=== PATIENT | male | born 1990 | race Caucasian/White ===

== ENCOUNTER 2021-03-11 23:25 | Emergency (ER) | payer OTHER ==
[~2021-03-11] VITALS: Ht 185.4 cm; Wt 113.6 kg
--- NOTE | 2021-03-12 00:07 | RAD ---
Right shoulder 3 views. HISTORY: Injury, pain 3 views the right shoulder show an anterior dislocation of the shoulder. A definite fracture is not i dentified. IMPRESSION: 1. Anterior dislocation right shoulder. Electronically signed by: Patrick Benedict MD (03/12/2021 12:04 AM) [facility]
[2021-03-12] MEDS ORDERED: HYDR-2155 PO (00:45)
[2021-03-12] MEDS ORDERED: HYDROcodone/APAP 5/325MG 1 TAB TABLET PO ONE (00:45)
[2021-03-12] MEDS ORDERED: KETOROLAC 60 MG/2 ML VIAL. IM ONE (00:45)
--- NOTE | 2021-03-12 00:45 | PHYS DOC ---
Adult General Chief Complaint Chief Complaint: SHOULDER INJURY HPI HPI Patient is a 30-year-old male, otherwise healthy who presents to the emergency department with a chief complaint of right shoulder pain. States he was playing football just before coming in and fell to the ground on his right shoulder. States he has pain in that arm, 8 out of 10, sharp in nature and has had trouble moving it. Denies any other traumas, head injury, syncope, neck pain, chest pain, abdominal pain, shortness of breath, nausea, vomiting. Review of Systems Review of Systems Review of systems otherwise unremarkable except noted in HPI Current Medications Current Medications Current Medications Medications (Trade) Dose Ordered Sig/Hal Start Time Stop Time Status Last Admin Dose Admin Fentanyl Citrate (Fentanyl 2ml Vial) 100 mcg 1X ONCE 03/12/21 00:15 03/12/21 00:16 DC 03/12/21 00:14 100 MCG Allergies Allergies Allergies Coded Allergies Type Severity Reaction Last Updated Verified cefaclor Allergy Unknown 03/11/21 Yes Physical Exam Physical Exam Constitutional: Well developed, well nourished, no acute distress, non-toxic appearance. [] HENT: Normocephalic, atraumatic, Eyes:conjunctiva normal, no discharge. [] Neck: Normal range of motion, no tenderness, Cardiovascular:Heart rate regular rhythm, no murmur [] Lungs & Thorax: Bilateral breath sounds clear to auscultation [] Back: No tenderness, Extremities: Right shoulder pain on palpation or passive range of motion with apparent deformity. Neurovascular exam intact. Post reduction, patient able to move arm and complete range of motion with minimal pain. Neurologic: Alert and oriented X 3, no focal deficits noted. [] Psychologic: Affect normal, judgement normal, mood normal. [] Current Patient Data Vital Signs Vital Signs Date Time Temp Pulse Resp B/P (MAP) Pulse Ox O2 Delivery O2 Flow Rate FiO2 03/12/21 00:14 20 98 Room Air EKG EKG [] Radiology/Procedures Radiology/Procedures []ight shoulder 3 views. HISTORY: Injury, pain 3 views the right shoulder show an anterior dislocation of the shoulder. A definite fracture is not identified. IMPRESSION: 1. Anterior dislocation right shoulder. Electronically signed by: Patrick Benedict MD (03/12/2021 12:04 AM) [facility] Given two 100 mcg boluses of fentanyl preprocedure/shoulder reduction. Right shoulder reduction technique performed successfully. Patient tolerated procedure well. Heart Score C/O Chest Pain: No Risk Factors: Risk Factors: DM, Current or recent (<one month) smoker, HTN, HLP, family history of CAD, obesity. Risk Scores: Risk Factors: DM, Current or recent (<one month) smoker, HTN, HLP, family hi story of CAD, obesity. Course & Med Decision Making Course & Med Decision Making Patient is a 30-year-old male who presents with right shoulder pain Vital signs not concerning. Physical exam noted above. Gave 100 mcg of f entanyl IM given suggested history and physical exam a right shoulder dislocation Chest x-ray notable for anterior right shoulder dislocation. Given another 100 mcg of fentanyl for reduction attempt. Reduction successful. Postreduction films reassuring. Placed patient in shoulder immobilizer/sling. Gave recommendations for pain management at home. Advised to call primary care physician in the morning to update on ED visit. Also gave contact information for [facility] to follow-up with in the morning as well. Advised on splint management. Gave return precautions to the ED. Patient grateful, verbalized understanding and agreed with plan of discharge. [] Dragon Disclaimer Dragon Disclaimer This electronic medical record was generated, in whole or in part, using a voice recognition dictation system. Departure Departure: Impression: Primary Impression: Dislocation of right shoulder joint Disposition: HOME / SELF CARE / HOMELESS Condition: GOOD Referrals: VERONICA TORRES MD Patient Instructions: Shoulder Dislocation, Shoulder Immobilizer Additional Instructions: Thank you for coming into the emergency department tonight and allowing us to take care of you. Please read all the attached information very carefully to go over what we have discussed. You can use Tylenol, ibuprofen and ice as needed at home for pain control. Please do not exceed 3000 mg of Tylenol daily. You can use your prescription pain medicine as well for breakthrough pain. Please keep your splint on until you see your primary care physician or orthopedic surgeon and are released. Please call your primary care physician in the morning to set up a follow-up visit. You can also call the [facility] group at [phone] first thing in the morning to set up a follow-up appointment with orthopedic surgery as well. Please come back to the emergency department with new or concerning symptoms as discussed. Scripts Hydrocodone Bit/Acetaminophen (HYDROCODONE-APAP 5-325 ) 1 Each Tablet 1 TAB PO TID PRN for shoulder pain for 7 Days, #21 TAB 0 Refills Prov: AARON SAWYER MD 03/12/21 AARON SAWYER MD Mar 12, 2021 00:45
[2021-03-12 01:16] VITALS: BP 142/76
--- NOTE | 2021-03-12 01:32 | RAD ---
EXAMINATION: XR SHOULDER_RIGHT 2+ VIEWS CLINICAL HISTORY: Post reduction TECHNIQUE: XR SHOULDER_RIGHT 2+ VIEWS COMPARISON: Right shoulder radiographs 03/11/2021 FINDINGS/ IMPRESSION: Satisfactory shinto of normal anatomic alignment at the glenohumeral joint status post interval reduction. No definitively visualized acute fracture on limited evaluation. Incidentally noted 7 mm lesion with thick sclerotic rim along the anterior humeral metadiaphysis, non specific. Nonemergent MRI could be obtained for further evaluation if indicated. Electronically signed by: Choco Rosario DO (03/12/2021 1:29 AM) [facility]
== END 2021-03-12 01:20 | disposition home or self-care (01) ==
LOC: ER 23:25
DX: S43.004A Unspecified dislocation of right shoulder joint, initial encounter (principal); Z88.1 Allergy status to other antibiotic agents; W18.39XA Other fall on same level, initial encounter; Y93.61 Activity, american tackle football; Y92.89 Other specified places as the place of occurrence of the external cause; Y99.8 Other external cause status
CPT/HCPCS: 23650; 73030; 96372; 99284; J1885; J3010

== ENCOUNTER 2021-11-24 22:52 | Emergency (ER) | payer OTHER ==
[~2021-11-24] VITALS: Ht 185.4 cm; Wt 119.9 kg
[~2021-11-24 22:52] MED LIST: HYDR-2155 PO
--- NOTE | 2021-11-24 22:54 | PHYS DOC ---
Past History Past Medical History: No Pertinent History Past Surgical History: Other Additional Past Surgical Histo: rt shoulder tear, bicep repair Alcohol Use: None General Adult HPI: HPI: ".. I was going down the walk and slipped on the ice... I went down... and caugh my right arm on the rail.. and it just popped my Rt shoulder out of the socket.. I ve had a previous dislocation... 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 Patient has history of previous dislocation and previous rotator cuff repair. Patient does have obvious anterior dislocation of right shoulder. Does have sensation loss in right deltoid. Does have some distal numbness in hand. Along the radial nerve distribution. Distal capillary refill is equal to left hand. Patient is right- hand dominant. Patient did eat last approximately 1800 hrs. consisting of peanut butter and taco. Has not had anything else in since that time. Patient denies other medical issues. Has not had any TDY or overseas assignments recently. Patient is up-to-date with vaccinations. No specific ill contacts. 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 Has been in [place] for the past 7 months. Review of Systems: Review of Systems: Constitutional: Denies fever or chills Eyes: Denies change in visual acuity HENT: Denies nasal congestion or sore throat Respiratory: Denies cough or shortness of breath Cardiovascular: Denies chest pain or edema GI: Denies abdominal pain, nausea, vomiting, bloody stools or diarrhea : Denies dysuria Musculoskeletal: Complains of right shoulder dislocation Integument: Denies rash Neurologic: Denies headache, focal weakness or sensory changes Endocrine: Denies polyuria or polydipsia Lymphatic: Denies swollen glands Psychiatric: Denies depression or anxiety Family History: Family History: Noncontributory to presentation Current Medications: Current Meds: See nursing for home meds Allergies: Allergies: Allergies Coded Allergies Type Severity Reaction Last Updated Verified cefaclor Allergy Unknown 03/11/21 Yes Physical Exam: PE: Constitutional: Well developed, well nourished, in acute distress, non-toxic appearance. [] HENT: Normocephalic, atraumatic, bilateral external ears normal, oropharynx m oist, no oral exudates, nose normal. [] Eyes: PERRLA, EOMI, conjunctiva normal, no discharge. [] Neck: Normal range of motion, no tenderness, supple, no stridor. [] Cardiovascular:Heart rate regular rhythm, no murmur [] Lungs & Thorax: Bilateral breath sounds equal and apex auscultation [] Abdomen: Bowel sounds normal, soft, no tenderness, no masses, no pulsatile masses. [] Skin: Warm, dry, no erythema, no rash. Tattoos. Back: No tenderness, no CVA tenderness. [] Extremities: No tenderness, no cyanosis, no clubbing, ROM intact, no edema. [] Except findings and right shoulder as per HPI Neurologic: Alert and oriented X 3, normal motor function, normal sensory function, no focal deficits noted. [] Psychologic: Affect anxious, judgement normal, mood normal. [] EKG: EKG: [] Radiology/Procedures: Radiology/Procedures: [place] [address] IMAGING REPORT Signed PATIENT: SHIRLEY TRACY ACCOUNT: [id number] : 1990 LOCATION: ER AGE: 31 SEX: M EXAM STATUS: REG ER ORD. PHYSICIAN: TREY PINTO MD REASON: shoulder pain, FALL PROCEDURE: CHEST AP ONLY EXAMINATION: Chest right shoulder radiographs. VIEWS: Single view of the chest and 4 views of the right shoulder. COMPARISON: Shoulder radiograph dated 624 1 INDICATION:31 years, Male, Shoulder pain, fall, dislocation. FINDINGS: Chest: Normal cardiomediastinal silhouette. No focal consolidation. No pleural effusion or pneumothorax. No acute osseous process. Right shoulder: Anterior inferior shoulder dislocation. No acute fracture. Soft tissue swelling about the right shoulder. IMPRESSION: 1. Anterior inferior right shoulder dislocation. 2. No acute cardiopulmonary process. Electronically signed by: Norman Branham MD (11/24/2021 11:46 PM) [facility] DICTATED AND SIGNED BY: NORMAN BRANHAM MD DATE: 11/24/21 9609 CC: TREY PINTO MD; PCP,UNKNOWN ~MTH0 0 [[address] [address] IMAGING REPORT Signed PATIENT: SHIRLEY TRACY ACCOUNT: [id number] : 1990 LOCATION: ER AGE: 31 SEX: M EXAM STATUS: REG ER ORD. PHYSICIAN: TREY PINTO MD REASON: shoulder pain, FALL, H/O DISLOCATION PROCEDURE: SHOULDER 2+V RIGHT EXAMINATION: Chest right shoulder radiographs. VIEWS: Single view of the chest and 4 views of the right shoulder. COMPARISON: Shoulder radiograph dated 6212 18 INDICATION:31 years, Male, Shoulder pain, fall, dislocation. FINDINGS: Chest: Normal cardiomediastinal silhouette. No focal consolidation. No pleural effusion or pneumothorax. No acute osseous process. Right shoulder: Anterior inferior shoulder dislocation. No acute fracture. Soft tissue swelling about the right shoulder. IMPRESSION: 1. Anterior inferior right shoulder dislocation. 2. No acute cardiopulmonary process. Electronically signed by: Norman Branham MD (11/24/2021 11:46 PM) [facility] DICTATED AND SIGNED BY: NORMAN BRANHAM MD DATE: 11/24/21 569 CC: TREY PINTO MD; PCP,UNKNOWN ~MTH0 0 ][address] [address] IMAGING REPORT Signed PATIENT: SHIRLEY TRACY ACCOUNT: [id number] : 1990 LOCATION: ER AGE: 31 SEX: M EXAM STATUS: REG ER ORD. PHYSICIAN: TREY PINTO MD REASON: shoulder pain, POST REDUCTION PROCEDURE: SHOULDER RIGHT 1V EXAMINATION: Right shoulder radiograph. VIEWS: 1 COMPARISON: Same day radiograph INDICATION:31 years, Male, right shoulder pain, post reduction. FINDINGS/ IMPRESSION: Successful reduction of the right shoulder dislocation with normal anatomical alignment. No acute fracture. Electronically signed by: Norman Branham MD (11/25/2021 12:06 AM) [facility] DICTATED AND SIGNED BY: NORMAN BRANHAM MD DATE: 11/25/21 0004 CC: TREY PINTO MD; PCP,UNKNOWN ~MTH0 0 Heart Score: C/O Chest Pain: No Risk Factors: Risk Factors: DM, Current or recent (<one month) smoker, HTN, HLP, family history of CAD, obesity. Risk Scores: Score 0 - 3: 2.5% MACE over next 6 weeks - Discharge Home Score 4 - 6: 20.3% MACE over next 6 weeks - Admit for Clinical Observation Score 7 - 10: 72.7% MACE over next 6 weeks - Early Invasive Strategies Course & Med Decision Making: Course & Med Decision Making Pertinent Labs and Imaging studies reviewed. (See chart for details) See Procedural sedation -procedure note- Procedure-right shoulder dislocation reduction-patient last ate at 1800 hrs. No intake of since that time. Risk and benefits discussed at length. Patient has no significant medical history with exception of right shoulder rotator cuff bicept tendon repair and a prior anterior dislocation. Patient Mallampati score is 1. ASA a classification is 1. LEMON-assessment. The patient was placed on heart monitor and, O2, CO2 monitor. Patient given small increments of 10 mg- 20 mg of propofol until dislocation reduced by gentle traction. Patient required 80 mg of propofol IV. pt. did get 30 mg of Toradol. and 10 mg Morphine SQ for pain management. Pt. reported immediate relief of pain at time of reduction. Numbness in Rt. shoulder deltoid area radial nerve distribution resolved with reduction. Patient was placed in a sling and swath. Post reduction films showed adequate placement of shoulder and no fracture. Patient to wear shoulder sling and swath until follow-up with orthopedic. Patient given phone number for [facility] if he does not have a follow-up at [facility]. Patient take Tylenol and ibuprofen as needed for pain. Patient return if any concerns. Patient observed additional hour post procedure no ill effects noted. Patient ambulatory without problem. Discharged to care of his friend. Distal neurovascular and right hand is equal to left hand. Patient use ice packs as needed for the next 2 days. Must wear splint until follow-up with orthopedics. [] Dragon Disclaimer: Dragon Disclaimer: This electronic medical record was generated, in whole or in part, using a voice recognition dictation system. Departure Departure: Referrals: PCP,UNKNOWN (PCP) Procedural Sedation Proc Sed Indication: []Rt. shoulder dislocation Consent: []- Signed- UCFL capacity Physician Involvement: The attending physician was present and supervising this procedure. Pre-Sedation Documentation and Exam: See primary chart Airway Assessment: See primary chart Prior History of Anesthesia Complications: None ASA Classification: 1 Sedation/ Anesthesia Plan: Small increments of propofol until adequate procedural sedation. Medications Used: Propofol Monitoring and Safety: The patient was placed on a director of cardiac rehabilitation and vital signs, pulse oximetry and level of consciousness were continuously evaluated throughout the procedure. The patient was closely monitored until recovery from the medications was complete and the patient had returned to baseline status. Respiratory therapy was on standby at all times during the procedure. (The following sections must be completed) Post-Sedation Vital Signs: [EDM.VS] Post-Sedation Exam: Noted Complications: None Vital Signs Vital Signs Date Time Temp Pulse Resp B/P (MAP) Pulse Ox O2 Delivery O2 Flow Rate FiO2 11/24/21 23:37 99 Room Air 11/24/21 23:29 65 20 165/72 6.0 67 18 6.0 6.0 6.0 4.0 11/24/21 22:59 97.6 Dragon Disclaimer This chart was dictated in whole or in part using Voice Recognition software in a busy, high-work load, and often noisy Emergency Department environment. It may contain unintended and wholly unrecognized errors or omissions. TREY PINTO MD Nov 24, 2021 22:54
[2021-11-24] MEDS ORDERED: PROPOFOL 20 ML IV ONE (23:00)
[2021-11-24] MEDS ORDERED: KETOROLAC 30 MG/ML VIAL. IVP ONE (23:00)
[2021-11-24] MEDS ORDERED: IV RINGERS SOLUTION,LACTATED 1,000 ML IV ONE (23:00)
[2021-11-24] MEDS ORDERED: KETOROLAC 30 MG/ML VIAL. ONE (23:09)
[2021-11-24] MEDS ORDERED: ONDANSETRON PF 4 MG/2 ML VIAL. ONE (23:14)
[2021-11-24] MEDS ORDERED: ONDANSETRON PF 4 MG/2 ML VIAL. IVP ONE (23:15)
[2021-11-24 23:29] VITALS: BP 165/72
[2021-11-24] MEDS ORDERED: MORPHINE SULFATE 10 MG/ML SYRINGE. ONE (23:31)
[2021-11-24] MEDS ORDERED: MORPHINE SULFATE 10 MG/ML SYRINGE. SQ ONE (23:45)
--- NOTE | 2021-11-24 23:48 | RAD ---
EXAMINATION: Chest right shoulder radiographs. VIEWS: Single view of the chest and 4 views of the right shoulder. COMPARISON: Shoulder radiograph dated 624 1 INDICATION:31 years, Male, Shoulder pain, fall, dislocation. FINDINGS: Chest: Normal cardiomediastinal silhouette. No focal consolidation. No pleural effusion or pneumothor ax. No acute osseous process. Right shoulder: Anterior inferior shoulder dislocation. No acute fracture. Soft tissue swelling about the right shoulder. IMPRESSION: 1. Anterior inferior right shoulder dislocation. 2. No acute cardiopulmonary process. Electronically signed by: Norman Branham MD (11/24/2021 11:46 PM) [facility]
--- NOTE | 2021-11-25 00:08 | RAD ---
EXAMINATION: Right shoulder radiograph. VIEWS: 1 COMPARISON: Same day radiograph INDICATION:31 years, Male, right shoulder pain, post reduction. FINDINGS/ IMPRESSION: Successful reduction of the right shoulder dislocation with normal anatomical alignment. No acute fra cture. Electronically signed by: Norman Branham MD (11/25/2021 12:06 AM) [facility]
== END 2021-11-25 00:33 | disposition home or self-care (01) ==
LOC: ER 22:52
DX: S43.084A Other dislocation of right shoulder joint, initial encounter (principal); W00.0XXA Fall on same level due to ice and snow, initial encounter; Y93.89 Activity, other specified; Y92.89 Other specified places as the place of occurrence of the external cause; Y99.8 Other external cause status
CPT/HCPCS: 23650; 71045; 73020; 73030; 96361; 96374; 99152; 99285; J1885; J2270; J2405; J2704; J7120